=== PATIENT | female | born 1970 | race American Indian/Alaskan Native ===

== ENCOUNTER 2017-07-09 10:52 | Emergency (ER) | payer BC, OTHER ==
[2017-07-09 11:12] VITALS: RESP 18; TEMP 98
--- NOTE | 2017-07-09 11:36 | ED PDOC ---
Arrival/HPI - General Chief Complaint: Weakness/Neurological Deficit Time Seen by Provider: 07/09/17 11:16 Historian: Patient - History of Present Illness Narrative History of Present Illness (Text): 07/09/17 11:26 A 47 year old female, with no significant medical history, presents to the emergency room complaining of chest pain since yesterday night. Patient took one aspirin this morning for her pain. She notes feeling numbness and weakness in her left arm, and states she is having a hard time grasping objects. Patient has been feeling stressed lately due to children and relationship problems. Patient denies fever, chills, nausea, vomiting, diarrhea, abdominal pain, shortness of breath or any other complaints. Time/Duration: Other (yesterday night) Symptom Course: Unchanged Context: Home Past Medical History - Provider Review Nursing Documentation Reviewed: Yes - Infectious Disease Hx of Infectious Diseases: None - Reproductive Menopause: No - Psychiatric Hx Substance Use: No Family/Social History - Physician Review Nursing Documentation Reviewed: Yes Family/Social History: Hypertension, CAD/MD, Other (Epilepsy) Smoking Status: Unknown If Ever Smoked Hx Alcohol Use: No Hx Substance Use: No Allergies/Home Meds Allergies/Adverse Reactions: Allergies No Known Allergies Allergy (Verified 07/09/17 11:08) Home Medications: Home Meds Medication Instructions Recorded Confirmed No Known Home Med 07/09/17 07/09/17 Review of Systems - Physician Review All systems were reviewed & negative as marked: Yes - Review of Systems Constitutional: absent: Fevers, Night Sweats Respiratory: absent: SOB Cardiovascular: Chest Pain Gastrointestinal: absent: Abdominal Pain, Diarrhea, Vomiting Neurological: Focal Weakness (Left arm weakness and numbess) Physical Exam Vital Signs Reviewed: Yes Vital Signs Temp Pulse Resp BP Pulse Ox 07/09/17 12:45 75 18 124/74 100 07/09/17 11:11 98.0 F 81 18 149/82 100 Temperature: Afebrile Blood Pressure: Normal Pulse: Regular Respiratory Rate: Normal Appearance: Positive for: Well-Appearing, Non-Toxic, Comfortable Pain Distress: None Mental Status: Positive for: Alert and Oriented X 3 - Systems Exam Head: Present: Atraumatic, Normocephalic Pupils: Present: PERRL Extroacular Muscles: Present: EOMI Conjunctiva: Present: Normal Mouth: Present: Moist Mucous Membranes Neck: Present: Normal Range of Motion Respiratory/Chest: Present: Clear to Auscultation, Good Air Exchange. No: Respiratory Distress, Accessory Muscle Use Cardiovascular: Present: Regular Rate and Rhythm, Normal S1, S2. No: Murmurs Abdomen: Present: Normal Bowel Sounds. No: Tenderness, Distention, Peritoneal Signs Back: Present: Normal Inspection Upper Extremity: Present: Normal Inspection. No: Cyanosis, Edema Lower Extremity: Present: Normal Inspection. No: Edema Neurological: Present: GCS=15, CN II-XII Intact, Speech Normal Skin: Present: Warm, Dry, Normal Color. No: Rashes Psychiatric: Present: Alert, Oriented x 3, Normal Insight, Normal Concentration Medical Decision Making ED Course and Treatment: 07/09/17 11:44 Impression: A 47 year old female with chest pain. Patient notes left arm numbness and weakness. Differential Diagnosis included but are not limited to: Chest pain vs. anxiety vs. hyperventilation vs. paresthesia Plan: -- Head CT -- Chest xray -- EKG -- Labs -- Reassess and disposition Progress Notes: Report Date : 07/09/2017 12:23:56 Procedure: Chest xray Dictator : Sharla Laguna MD IMPRESSION: No active pulmonary disease. Report Date : 07/09/2017 12:26:29 PROCEDURE: CT HEAD WITHOUT CONTRAST. Dictator : James Robins MD IMPRESSION: Unremarkable unenhanced head CT. Follow-up CT or MRI are available as clinically warranted. - Lab Interpretations Lab Results: 07/09/17 11:55 07/09/17 11:55 Lab Results 07/09/17 11:55: Sodium 140, Potassium 4.1, Chloride 101, Carbon Dioxide 31, Anion Gap 12, BUN 12, Creatinine 1.0, Est GFR ( Amer) > 60, Est GFR (Non- Af Amer) 59, Random Glucose 87, Calcium 9.6, Total Bilirubin 0.4, AST 33, ALT 36 , Alkaline Phosphatase 57, Lactate Dehydrogenase 441, Total Creatine Kinase 112 , Troponin I < 0.01, Total Protein 7.8, Albumin 4.0, Globulin 3.8, Albumin/ Globulin Ratio 1.1 07/09/17 11:55: PT 12.5, INR 1.09 H, D-Dimer, Quantitative < 200 07/09/17 11:55: WBC 4.2 L, RBC 4.78, Hgb 14.8, Hct 43.3, MCV 90.6, MCH 31.0, MCHC 34.2, RDW 13.1, Plt Count 207, MPV 10.7, Gran % 57.8, Lymph % (Auto) 32.8, [place] % (Auto) 7.5 H, Eos % (Auto) 1.2 L, Baso % (Auto) 0.7, Gran # 2.45, Lymph # (Auto) 1.4, [place] # (Auto) 0.3, Eos # (Auto) 0.1, Baso # (Auto) 0.03 I have reviewed the lab results: Yes - RAD Interpretation Radiology Orders: 07/09/17 11:17 HEAD W/O CONTRAST [CT] Stat CHEST TWO VIEWS (PA/LAT) [RAD] Stat - PA / ANALYTICAL RESEARCH PROGRAM MANAGER / Resident Statement MD/DO has reviewed & agrees with the documentation as recorded. - Scribe Statement The provider has reviewed the documentation as recorded by the Scribe Ericka Bains training under Lelo Ramirez Provider Scribe Attestation: All medical record entries made by the Scribe were at my direction and personally dictated by me. I have reviewed the chart and agree that the record accurately reflects my personal performance of the history, physical exam, medical decision making, and the department course for this patient. I have also personally directed, reviewed, and agree with the discharge instructions and disposition. Disposition/Present on Arrival - Present on Arrival Any Indicators Present on Arrival: No History of DVT/PE: No History of Uncontrolled Diabetes: No Urinary Catheter: No History of Decub. Ulcer: No History Surgical Site Infection Following: None - Disposition Have Diagnosis and Disposition been Completed?: Yes Diagnosis: Atypical chest pain, Anxiety, Stress at home, Paresthesias Disposition: HOME/ ROUTINE Disposition Time: 13:35 Patient Plan: Discharge Patient Problems: Current Active Problems Problem Status Onset Anxiety Acute Atypical chest pain Acute Paresthesias Acute Stress at home Acute Condition: GOOD Discharge Instructions (ExitCare): Anxiety, Adult (DC), Chest Pain (ED) Additional Instructions: Diya- So sorry that you are going through this, I know having these symptoms on top of all the other stress can be difficult. Your EKG, your Blood Work, your CT Scan, you Chest X-Ray, all are normal. Please follow up with your regular doctor next week. Return to us sooner if any problems at all or if you get new symptoms or your condition worsens. [facility] [place]- Dr. Popeye Jordan Referrals: [facility] Profile Req, [Primary Care Provider] - Follow up with primary Forms: [email or web address] ([place])
--- NOTE | 2017-07-09 12:28 | CT ---
PROCEDURE: CT HEAD WITHOUT CONTRAST. HISTORY: Left arm numbness COMPARISON: None available. TECHNIQUE: Axial computed tomography images were obtained through the head/brain without intravenous contrast. Radiation dose: Total exam DLP = 888.80 mGy-cm. This CT exam was performed using one or more of the following dose reduction techniques: Automated exposure control, adjustment of the mA and/or kV according to patient size, and/or use of iterative reconstruction technique. FINDINGS: HEMORRHAGE: No intracranial hemorrhage. BRAIN: Normal theodore-white matter differentiation and density are appreciated throughout the cerebrum and cerebellum with the brainstem appearing unremarkable as well. There is no mass effect. There is no suspicious extra-axial fluid collection and the midline brain anatomy appears diffusely unremarkable. VENTRICLES: Unremarkable. No hydrocephalus. CALVARIUM: Unremarkable. PARANASAL SINUSES: Unremarkable as visualized. No significant inflammatory changes. MASTOID AIR CELLS: Unremarkable as visualized. No inflammatory changes. OTHER FINDINGS: None. IMPRESSION: Unremarkable unenhanced head CT. Follow-up CT or MRI are available as clinically warranted.
[2017-07-09 12:35] LABS: BASO # 0.03 K/mm3 (0.0-2.0); BASO % 0.7 % (0.0-3.0); EOS # 0.1 (0.0-0.7); EOS % 1.2 % (1.5-5.0); GRAN # 2.45 (1.4-6.5); GRAN % 57.8 % (50.0-68.0); HEMOGLOBIN 14.8 g/dL (12.0-16.0); LYMPH # 1.4 (1.2-3.4); LYMPH % 32.8 % (22.0-35.0); MEAN CELL VOLUME 90.6 fl (80.0-105.0); MEAN CORPUSCULAR HGB CONC 34.2 g/dl (31.0-37.0); MEAN PLATELET VOLUME 10.7 fl (7.0-11.0); MONO # 0.3 (0.1-0.6); MONO % 7.5 % (1.0-6.0); RBC 4.78 10^6/uL (3.5-6.1); RED CELL DISTRIBUTION WIDTH 13.1 % (11.5-14.5); WHITE BLOOD COUNT 4.2 10^3/ul (4.5-11.0)
[2017-07-09 12:40] LABS: ALB/GLOB RATIO 1.1 (1.1-1.8); ALT/SGPT 36 U/L (7-56); AST/SGOT 33 U/L (14-36); BLOOD UREA NITROGEN 12 mg/dL (7-21); CALCIUM 9.6 mg/dL (8.4-10.5); GFR AFRICAN-AMERICAN > 60; GFR NON-AFRICAN AMERICAN 59
[2017-07-09 12:50] LABS: D DIMER < 200 ng/mL (0-243); INR 1.09 (0.93-1.08); PROTHROMBIN TIME 12.5 SECONDS (9.4-12.5)
[2017-07-09 12:52] LABS: TROPONIN I < 0.01 ng/mL
[2017-07-09 16:30] VITALS: BP 131/77; PULSE 76; O2SAT 98
--- NOTE | 2017-07-10 09:47 | CARD ---
APPROVED REPORT EKG Measurement Heart [id number] <Conclusion> Normal sinus rhythm Normal ECG
== END 2017-07-09 14:00 | disposition home or self-care (01) ==
LOC: ED 10:52
DX: F41.9 Anxiety disorder, unspecified (principal); R07.89 Other chest pain; F43.9 Reaction to severe stress, unspecified; R20.2 Paresthesia of skin